=== PATIENT | female | born 1985 | race Caucasian/White ===

== ENCOUNTER 2024-10-21 08:28 | Outpatient (CLI) | payer MEDICAID ==
[~2024-10-21 08:28] MED LIST: PHEN-786 PO
== END 2024-10-21 23:59 | disposition home or self-care (01) ==
LOC: RAD 08:28
PROVIDERS: ATTEND Physician Assistant
DX: R74.8 Abnormal levels of other serum enzymes (principal)
CPT/HCPCS: 76700